=== PATIENT | female | born 1945 | race Caucasian/White ===

== ENCOUNTER 2018-03-25 06:36 | Day surgery (SDC) | payer OTHER ==
[~2018-03-25 06:36] MED LIST: NITROFURANTOIN100 MG PO; OMEGA-31000 MG PO; PHENAZOPYRIDIN200 MG PO; VITA D; VITA-C120 GM PO
== END 2018-03-25 14:00 | disposition home or self-care (01) ==
LOC: CIR.AMB 06:36
DX: M25.831 Other specified joint disorders, right wrist (principal)